=== PATIENT | female | born 1980 | race Caucasian/White ===

== ENCOUNTER 2016-12-20 14:11 | Emergency (ER) | payer BC ==
[~2016-12-20] VITALS: Ht 167.6 cm; Wt 71.6 kg
[~2016-12-20 14:11] MED LIST: CLR10 PO; ZNTT/150 PO
[2016-12-20 14:15] VITALS: TEMP 36.6; Ht 167.6 cm; Wt 71.6 kg
[2016-12-20] MEDS ORDERED: SODIUM CHLORIDE 0.9% 1000ML 1,000 ML IV STA (15:43)
[2016-12-20] MEDS ORDERED: ASPIRIN 81 MG CHEW PO STA (15:43)
[2016-12-20] MEDS ORDERED: ONDANSETRON INJ 2 MG/ML 2 ML VIAL IV STA (15:43)
[2016-12-20] MEDS ORDERED: ALBUT/IPRATROP 3MG/0.5MG NEB 3 ML VIAL INH STA (15:43)
[2016-12-20 16:09] LABS: BASO % 0.2 %; BASO ABS # 0.02 K/uL (0-0.2); COMPLETE YES; EOS % 0.5 %; HEMATOCRIT 40.3 % (37-47); IG% 0.4 %; LYMPH % 21.4 %; LYMPH ABS # 1.96 K/uL (1.2-3.4); MEAN CELL VOLUME 88.8 fL (80-100); MEAN CORPUSCULAR HEMOGLOBIN 30.4 pg (25-34); MEAN CORPUSCULAR HGB CONC 34.2 g/dl (32-36); MEAN PLATELET VOLUME 9.9 fL (7.4-10.4); MONO % 6.2 %; NEUT % 71.3 %; PLATELET COUNT 241 K/uL (130-400); RED BLOOD COUNT 4.54 M/uL (4.2-5.4); WHITE BLOOD COUNT 9.18 K/uL (4.8-10.8)
[2016-12-20 16:10] LABS: URINE APPEARANCE CLEAR (CLEAR); URINE BILIRUBIN NEG (NEG); URINE COLOR YELLOW; URINE NITRITE NEG (NEG); URINE PH >= 9.0 (4.5-7.5); URINE SPECIFIC GRAVITY 1.013 (1.000-1.030); UROBILINOGEN NEG (NEG)
[2016-12-20 16:13] LABS: MANUAL MICROSCOPIC REQUIRED? NO; REVIEW REQ? NO
--- NOTE | 2016-12-20 16:22 | DIAGNOSTIC IMAGING REPORT ---
CHEST ONE VIEW PORTABLE CLINICAL HISTORY: Atypical chest pain COMPARISON STUDY: No previous studies for comparison. FINDINGS: The cardiac and mediastinal contours are normal. There is no evidence of focal pulmonary consolidation. There is no evidence of failure. No pleural effusions are visualized.[ IMPRESSION: No active disease in the chest. Electronically signed by: Marcellus Varela M.D. 12/20/2016 4:21 PM Dictated Date/Time: 12/20/2016 4:21 PM
[2016-12-20 16:33] LABS: PREG INTERNAL NEGATIVE QC NEG CLEAR BACKGROUND; PREG INTERNAL POSITIVE QC POS CONTROL LINE
[2016-12-20 16:35] LABS: ALT/SGPT 28 U/L (12-78); BLOOD UREA NITROGEN 11 mg/dl (7-18); BUN/CREATININE RATIO 14.6 (10-20); CARBON DIOXIDE 30 mmol/L (21-32); CHLORIDE 104 mmol/L (98-107); CREATININE 0.74 mg/dl (0.60-1.20); GLUCOSE 97 mg/dl (70-99); POTASSIUM 3.7 mmol/L (3.5-5.1); SODIUM 139 mmol/L (136-145)
[2016-12-20 16:40] LABS: ALKALINE PHOSPHATASE 64 U/L (45-117); AST/SGOT 20 U/L (15-37)
[2016-12-20] MEDS ORDERED: CLAR500T3 PO (16:48)
[2016-12-20] MEDS ORDERED: DEXT30TA7 PO (16:48)
[2016-12-20 17:26] VITALS: BP 98/55; PULSE 70; O2SAT 97
[2016-12-20] MEDS ORDERED: VNTHFA/IN INH (17:52)
[2016-12-20] MEDS ORDERED: HYDR5SYP11 PO (17:52)
[2016-12-20] MEDS ORDERED: PRED20TA2 PO (17:52)
--- NOTE | 2016-12-21 01:23 | EMERGENCY ROOM VISIT NOTE ---
ED Visit Note First contact with patient: 15:13 Chief Complaint: I'm having chest tightness and intermittent shortness of breath. History of Present Illness: Ms. Joshua is a 36 year-old white female who ambulates into the ED accompanied by male friend complaining of chest tightness. Historically patient reports for the last 2-3 weeks she has been diagnosed with a sinus infection and ear infection. She continues to have symptoms and recently had her antibiotic changed. Patient reports she has no history of coronary artery disease, she has no risk factors for coronary artery disease. She has no family history of coronary artery disease. Patient reports a gradual onset of chest tightness that started approximately 3 days ago and intermittent shortness of breath. Since that time the pain has been constant but has waxed and waned in intensity. The pain is currently described as like someone is sitting on my chest. The pain is nonradiating. She currently rates her discomfort 4/10. She reports her discomfort worsens when she is lying down at night to go to bed. She has not identified any alleviating factors related to the discomfort. She reports she has not taken any medications for her discomfort prior to arrival at the hospital. Associated with her symptoms she has had a nonproductive cough, sinus drainage, chills, sensations of increased heart rate while lying down at night, and intermittently diffuse abdominal pain with nausea. She also notes intermittently she has sensation of hand tingling. She does report she continues to take her antibiotic for her symptoms and today she was using Mucinex for her cough and congestion without relief. Patient denies amanda fevers, sweats, skin eruptions, skin color changes, wheezing, cough, orthopnea, dependent edema, previous clots, claudication, cramping, recent surgery/inactivity/extended travel, diarrhea, constipation, rectal bleeding, black/tarry stools, urinary symptoms, back/flank pain. Review of Systems: As noted above in history of present illness. All body systems were reviewed and found to be negative as noted above. Past Medical History: Patient denies. Current Medications: Zantac, Biaxin and, Mucinex Allergies to Medications: Patient denies. Social History: Patient is not employed; she feels safe in her home environment ; she denies tobacco use and admits to social alcohol use. Physical Examination: Vital Signs: Date Time Temp Pulse Resp B/P (MAP) Pulse Ox O2 Delivery O2 Flow Rate FiO2 10/10/17 17:26 70 18 98/55 97 Room Air 12/20/16 16:08 72 12/20/16 16:07 73 18 113/72 100 12/20/16 14:15 36.6 93 24 120/84 99 Room Air GENERAL: 36-year-old female in mild distress due to pain, nontoxic-appearing, afebrile and hemodynamically stable. NEUROLOGICAL: Awake, alert and oriented to person, place and time. Answering questions appropriately and following commands. Normal gait. Good hand eye coordination. SKIN: Warm, dry and pink. No soft tissue eruptions or trauma noted. HEENT: Atraumatic and normocephalic. No erythema or tenderness over the frontal or maxillary sinuses. PERRLA. Sclera white and conjunctiva pink. Oral cavity moist and pink. Pharynx is nonerythematous or edematous. Speech normal. No lymphadenopathy. Trachea midline. No jugular venous distention. No carotid bruits. BACK: No tenderness over the bony spine. No CVA tenderness. THORAX: Lungs sounds are clear to auscultation and equal bilaterally with symmetrical chest wall. Decreased air movement in the bilateral bases. No wheezing, rales or rhonchi. No crepitus, tenderness, subcutaneous air or deformities noted. No increased respiratory effort or rate. HEART: Regular rate and rhythm. No gallops, rubs or murmurs are appreciated. No lifts, heaves or thrills. PMI is not displaced. ABDOMEN: Flat, soft and nontender. Positive bowel sounds in all quadrants. No guarding, rigidity or organomegaly. EXTREMITIES: Moves all extremities well on command and with purpose. All distal neurovascular statuses are intact and equal bilaterally. No dependent edema or calf tenderness/cords. ED Course: Patient is assessed as noted above. Laboratory Testing: Test 12/20/16 15:57 Range/Units White Blood Count 9.18 4.8-10.8 K/uL Red Blood Count 4.54 4.2-5.4 M/uL Hemoglobin 13.8 12.0-16.0 g/dL Hematocrit 40.3 37-47 % Mean Corpuscular Volume 88.8 80-100 fL Mean Corpuscular Hemoglobin 30.4 25-34 pg Mean Corpuscular Hemoglobin Concent 34.2 32-36 g/dl Platelet Count 241 130-400 K/uL Mean Platelet Volume 9.9 7.4-10.4 fL Neutrophils (%) (Auto) 71.3 % Lymphocytes (%) (Auto) 21.4 % Monocytes (%) (Auto) 6.2 % Eosinophils (%) (Auto) 0.5 % Basophils (%) (Auto) 0.2 % Neutrophils # (Auto) 6.54 1.4-6.5 K/uL Lymphocytes # (Auto) 1.96 1.2-3.4 K/uL Monocytes # (Auto) 0.57 0.11-0.59 K/uL Eosinophils # (Auto) 0.05 0-0.5 K/uL Basophils # (Auto) 0.02 0-0.2 K/uL RDW Standard Deviation 39.3 36.4-46.3 fL RDW Coefficient of Variation 12.3 11.5-14.5 % Immature Granulocyte % (Auto) 0.4 % Immature Granulocyte # (Auto) 0.04 0.00-0.02 K/uL D-Dimer < 190 0-500 ug/L FEU Urine Color YELLOW Urine Appearance CLEAR CLEAR Urine pH >= 9.0 4.5-7.5 Urine Specific Pegram 1.013 1.000-1.030 Urine Protein NEG NEG Urine Glucose (UA) NEG NEG Urine Ketones NEG NEG Urine Occult Blood NEG NEG Urine Nitrite NEG NEG Urine Bilirubin NEG NEG Urine Urobilinogen NEG NEG Urine Leukocyte Esterase NEG NEG Sodium Level 139 136-145 mmol/L Potassium Level 3.7 3.5-5.1 mmol/L Chloride Level 104 98-107 mmol/L Carbon Dioxide Level 30 21-32 mmol/L Anion Gap 5.0 3-11 mmol/L Blood Urea Nitrogen 11 7-18 mg/dl Creatinine 0.74 0.60-1.20 mg/dl Est Creatinine Clear Calc Drug Dose 108.6 ml/min Estimated GFR () 122.5 Estimated GFR (Non- 105.7 BUN/Creatinine Ratio 14.6 10-20 Random Glucose 97 70-99 mg/dl Calcium Level 9.0 8.5-10.1 mg/dl Total Bilirubin 0.6 0.2-1 mg/dl Direct Bilirubin 0.2 0-0.2 mg/dl Aspartate Amino Transf (AST/SGOT) 20 15-37 U/L Alanine Aminotransferase (ALT/SGPT) 28 12-78 U/L Alkaline Phosphatase 64 45-117 U/L Troponin I < 0.015 0-0.045 ng/ml Total Protein 8.3 6.4-8.2 gm/dl Albumin 4.1 3.4-5.0 gm/dl Lipase 138 73-393 U/L Human Chorionic Gonadotropin, Qual NEG NEG Chest X-Ray: Was read by myself and the radiologist and shows no acute infiltrates, effusions or pneumothorax. Normal heart silhouette and bony anatomy. No free air under the diaphragm. EKG: Was read by myself and reviewed with Dr. Meneses; shows normal sinus rhythm with ventricular rate of 68 bpm. Possible left atrial large minute, no acute ST changes indicating ischemia, injury or infarction. This was compared to previous from February 2014 in no acute changes were noted. Patient was hydrated with normal saline and she received 4 mg of Zofran IV for nausea, 324 mg of aspirin by mouth and an albuterol/Atrovent nebulizer breathing treatment. Patient was reassessed multiple times during her stay in the emergency department; on her first reevaluation after her breathing treatment her lungs remain clear to auscultation and she had improved air movement in all guillaume. Patient's case was reviewed with Dr. Meneses; we agreed on diagnostic approach, treatment, disposition and plan. Patient was educated about today's findings and instructed on her treatment plan ; she verbalized understanding and agreement with this plan. Clinical Impression: Acute bronchitis. Acute costochondritis. Decision-Making: Initially my differential diagnosis I considered acute coronary syndrome, thoracic aneurysm, pneumothorax, pneumonia, pulmonary embolism, bronchitis, costochondritis and other causes. Disposition: Patient discharged home in stable condition accompanied by her ; prior to departure she was reassessed and subjectively reported she was feeling much better and rated her overall discomfort 3/10. Plan: Patient was encouraged to continue her current medications as prescribed. Patient was prescribed an albuterol inhaler with spacer, 60 mg of prednisone once a day, 5-10 mL of Hycodan every 6 hours and instructed on their use; she was warned that Hycodan was a narcotic and appropriate narcotic precautions were discussed with the patient and her name was checked in the state database and no red flags were found.. Additionally patient was encouraged to alternate ibuprofen and acetaminophen as needed for pain or fevers. Patient was encouraged to contact her PCP tomorrow and inform them of today's ED visit and request follow-up care and treatment. Patient was encouraged return ED for worsening/uncontrolled pain, shortness of breath/wheezing, coughing up blood, uncontrolled fevers or any new/concerning symptoms.
== END 2016-12-20 18:00 | disposition home or self-care (01) ==
LOC: C.EDB 14:13
DX: J20.9 Acute bronchitis, unspecified (principal); M94.0 Chondrocostal junction syndrome [Tietze]

== ENCOUNTER → 2017-05-10 | Outpatient (CLI) | payer OTHER ==
[~2017-05-10] MED LIST changes: +CLAR500T38 PO; -CLR10 PO; +DEXT30TA7 PO; +RANI150T85 PO; -ZNTT/150 PO
[2017-05-10 17:37] LABS: BASO % 0.4 %; BASO ABS # 0.02 K/uL (0-0.2); EOS % 0.2 %; EOS ABS # 0.01 K/uL (0-0.5); HEMATOCRIT 40.8 % (37-47); HEMOGLOBIN 13.5 g/dL (12.0-16.0); IG# 0.01 K/uL (0.00-0.02); LYMPH % 24.3 %; LYMPH ABS # 1.31 K/uL (1.2-3.4); MEAN CELL VOLUME 90.3 fL (80-100); MEAN CORPUSCULAR HEMOGLOBIN 29.9 pg (25-34); MEAN CORPUSCULAR HGB CONC 33.1 g/dl (32-36); MEAN PLATELET VOLUME 11.3 fL (7.4-10.4); MONO % 6.1 %; MONO ABS # 0.33 K/uL (0.11-0.59); NEUT % 68.8 %; PLATELET COUNT 221 K/uL (130-400); RED CELL DISTRIBUTION WIDTH CV 12.7 % (11.5-14.5); RED CELL DISTRIBUTION WIDTH SD 41.8 fL (36.4-46.3); WHITE BLOOD COUNT 5.38 K/uL (4.8-10.8)
[2017-05-10 17:47] LABS: ALBUMIN 3.9 gm/dl (3.4-5.0); ALT/SGPT 26 U/L (12-78); BLOOD UREA NITROGEN 17 mg/dl (7-18); CALCIUM 8.5 mg/dl (8.5-10.1); CARBON DIOXIDE 29 mmol/L (21-32); CREATININE 0.77 mg/dl (0.60-1.20); GLUCOSE 98 mg/dl (70-99); SODIUM 136 mmol/L (136-145)
[2017-05-10 17:58] LABS: ALKALINE PHOSPHATASE 52 U/L (45-117); AST/SGOT 15 U/L (15-37); TOTAL PROTEIN 7.5 gm/dl (6.4-8.2)
[2017-05-10 18:09] LABS: MONOSPOT NEG (NEG)
== END | disposition home or self-care (01) ==
LOC: C.LABBFT 11:36
PROVIDERS: ATTEND Internal Medicine
DX: R53.83 Other fatigue (principal); M25.50 Pain in unspecified joint

== ENCOUNTER → 2017-06-06 | Outpatient (CLI) | payer OTHER ==
[~2017-06-06] MED LIST changes: +OPTIRAY 320 IV PRN
--- NOTE | 2017-06-06 16:41 | DIAGNOSTIC IMAGING REPORT ---
CT OF THE CHEST WITH IV CONTRAST CLINICAL HISTORY: BRONCHOSPASM CHEST TIGHTNESS COMPARISON STUDY: Chest x-ray dated 12/20/2016 TECHNIQUE: Following the IV administration of 118 mL of [id number]-[id number], CT of the thorax was performed from the thoracic inlet to the lung bases. Images are reviewed in the axial, sagittal, and coronal planes. IV contrast was administered without complication. A dose lowering technique was utilized adhering to the principles of ALARA. CT DOSE: 210.43 mGy.cm FINDINGS: Thyroid: Imaged portions of the thyroid gland are normal in appearance. Thoracic aorta: The thoracic aorta is normal in course and caliber, noting standard 3-vessel arch anatomy. No aneurysm or dissection is seen. Pulmonary vasculature: The pulmonary trunk is normal in caliber. There are no central filling defects identified to suggest pulmonary embolus. Note that this examination was not protocoled for the evaluation of pulmonary emboli. HEART: The heart is normal in size and configuration, without pericardial effusion. Lungs and pleural spaces: No pleural effusions are visualized. There is no focal pulmonary consolidation. There is a tiny calcified granuloma within the right upper lobe. Mediastinum: There is no mediastinal lymphadenopathy. Kellie: Clear. Axilla: Clear. Upper abdomen: Partially visualized upper abdominal viscera is within normal limits. Skeletal structures: There are no lytic or blastic osseous lesions. IMPRESSION: 1. No acute intrathoracic findings 2. No evidence of pathologic adenopathy 3. No evidence of focal pulmonary consolidation. No pleural effusions. Electronically signed by: Marcellus Varela M.D. 06/06/2017 4:40 PM Dictated Date/Time: 06/06/2017 4:36 PM
== END | disposition home or self-care (01) ==
LOC: C.CTS 16:15
PROVIDERS: ATTEND Internal Medicine
DX: J20.9 Acute bronchitis, unspecified (principal); R53.83 Other fatigue

== ENCOUNTER → 2017-10-16 | Outpatient (CLI) | payer OTHER ==
[~2017-10-16] MED LIST changes: -OPTIRAY 320 IV PRN
== END | disposition home or self-care (01) ==
LOC: C.LAB1850 15:34
PROVIDERS: ATTEND Physician Assistant
DX: J02.0 Streptococcal pharyngitis (principal)